=== PATIENT | female | born 1960 | race Caucasian/White ===

== ENCOUNTER → 2017-09-21 | Outpatient (CLI) | payer BC ==
[~2017-09-21] MED LIST: CRESTOR5 MG PO; DALMANE; DIOVAN320 MG PO; FLEXERIL 1010 MG/TAB PO; HALCION0.25 MG PO; LOPRESSOR100 MG PO; MOBIC15 MG PO; NORCO 325 MG-101 TAB PO; NORCO 325 MG-51 TAB PO; PREMPRO 0.625/21 TAB PO; VALTREX1 GM PO; XALATAN EYE DROPS OU; ZOCOR 20MG20 MG PO
== END ==
LOC: MC.RAD 10:57
DX: Z12.31 Encounter for screening mammogram for malignant neoplasm of breast (principal)

== ENCOUNTER 2018-12-01 10:42 | Emergency (ER) | payer BC ==
[~2018-12-01] VITALS: Ht 157.5 cm; Wt 64.5 kg
[~2018-12-01 10:42] MED LIST changes: +ASPIRIN 81M81 MG/TA2 PO; +LEXAPRO20 MG PO; +PERCOCET 325 MG1 TAB PO; +PRAVACHOL 20MG20 MG PO; +RT SPIRIVA18 MCG IH; +TRUSOPT OCUMETE10 ML OU
[2018-12-01 10:52] VITALS: TEMP 98
[2018-12-01 11:09] LABS: COLLECTION METHOD CLEAN CATCH
[2018-12-01 11:43] LABS: MUCOUS Present /lpf; PH 7 (5-8); URINE APPEARANCE Clear; URINE BACTERIA None Seen /hpf; URINE BILIRUBIN Negative (NEGATIVE); URINE BLOOD 2+ (NEGATIVE); URINE COLOR Yellow; URINE GLUCOSE 1+ (NEGATIVE); URINE KETONE Trace (NEGATIVE); URINE LEUKOCYTE ESTERASE Negative (NEGATIVE); URINE NITRATE Negative (NEGATIVE); URINE PROTEIN(semi-quant) 1+ (NEGATIVE); URINE RBC 20-50 /hpf; URINE UROBILINOGEN Negative (NEGATIVE)
[2018-12-01 13:30] LABS: BASO # 0.1 (0.0-0.2); BASO % 0.6 % (0.0-2.0); EOS % 0.1 % (0-4.0); GRAN # 11.9 (1.4-6.5); GRAN % 86.6 % (42.2-75.2); HEMOGLOBIN 14.7 g/dl (12.5-16.0); LYMPH # 1.1 (1.2-3.4); LYMPH % 8.3 % (20.0-51.0); MEAN CELL VOLUME 101 fl (80.0-100.0); MEAN CORPUSCULAR HEMOGLOBIN 34 pg (27.0-31.0); MEAN CORPUSCULAR HGB CONC 33 g/dl (33.0-37.0); MONO # 0.5 (0.1-0.6); PLATELET COUNT 243 K/mm3 (130-400); RED BLOOD COUNT 4.37 M/mm3 (4.10-5.30); REDCELL DISTRIBUTION WIDTH-CV 12.6 % (11.5-14.5)
[2018-12-01] MEDS ORDERED: TRELEGY ELLIPT1 EACH INH (13:30)
[2018-12-01 13:32] LABS: COLLECTION METHOD CLEAN CATCH
[2018-12-01 13:40] LABS: ALBUMIN 4.4 gm/dL (3.5-5.0); BILIRUBIN,TOTAL 0.8 mg/dL (0.0-1.0); C-REACTIVE PROTEIN 1.7 mg/dL (0.0-0.9); CALCIUM 9.8 mg/dL (8.4-10.2); CREATININE, serum 0.91 mg/dL (0.52-1.25); POTASSIUM 4.7 mmol/L (3.4-5.0); TOTAL PROTEIN 8.2 gm/dL (6.4-8.2)
[2018-12-01 13:40] LABS: MUCOUS Present /lpf; PH 7 (5-8); URINE APPEARANCE Clear; URINE BACTERIA Rare /hpf; URINE BILIRUBIN Negative (NEGATIVE); URINE BLOOD 2+ (NEGATIVE); URINE COLOR Yellow; URINE GLUCOSE Negative (NEGATIVE); URINE KETONE Negative (NEGATIVE); URINE LEUKOCYTE ESTERASE Negative (NEGATIVE); URINE NITRATE Negative (NEGATIVE); URINE PROTEIN(semi-quant) 1+ (NEGATIVE); URINE RBC 20-50 /hpf; URINE UROBILINOGEN Negative (NEGATIVE)
[2018-12-01 15:23] VITALS: BP 173/97
[2018-12-01] MEDS ORDERED: ZOFRAN ODT4 MG PO (15:33)
[2018-12-01] MEDS ORDERED: PERCOCET 325 MG1 TA2 PO (15:33)
[2018-12-01] MEDS ORDERED: CEFTIN500 MG PO (15:33)
[2018-12-01 16:41] VITALS: PULSE 66
== END 2018-12-01 16:42 | disposition home or self-care (01) ==
LOC: COL.ER 10:42
PROVIDERS: Emergency Medicine
DX: N20.1 Calculus of ureter (principal); N23 Unspecified renal colic; F17.210 Nicotine dependence, cigarettes, uncomplicated; J44.9 Chronic obstructive pulmonary disease, unspecified; Z87.442 Personal history of urinary calculi; Z79.82 Long term (current) use of aspirin; Z79.51 Long term (current) use of inhaled steroids
CPT/HCPCS: A4216; J0696; J1885; J2405; J3010; J7030; Q9967

== ENCOUNTER → 2019-06-10 | Outpatient (CLI) | payer BC ==
[~2019-06-10] MED LIST changes: +CEFTIN500 MG PO; +PERCOCET 325 MG1 TA2 PO; +TRELEGY ELLIPT1 EACH INH; +ZOFRAN ODT4 MG PO
== END ==
LOC: MC.RAD 05-09 13:45
DX: Z12.31 Encounter for screening mammogram for malignant neoplasm of breast (principal)

== ENCOUNTER → 2021-12-25 | Outpatient (CLI) | payer BC | LOC: COL.RAD 13:24 | DX: N20.0 Calculus of kidney (principal) | CPT/HCPCS: Q9967 ==

== ENCOUNTER 2023-12-06 15:10 | Emergency (ER) | payer BC ==
[~2023-12-06] VITALS: Ht 157.5 cm; Wt 52.3 kg
[2023-12-06 15:18] VITALS: TEMP 98.1
[2023-12-06] MEDS ORDERED: Morphine 10 MG/ML VIAL IM ONE (17:15)
[2023-12-06 17:31] VITALS: BP 175/96; PULSE 75
== END 2023-12-06 17:38 | disposition home or self-care (01) ==
LOC: COL.ER 15:10
DX: S52.501A Unspecified fracture of the lower end of right radius, initial encounter for closed fracture (principal); S52.601A Unspecified fracture of lower end of right ulna, initial encounter for closed fracture; G89.29 Other chronic pain; F17.210 Nicotine dependence, cigarettes, uncomplicated; W18.30XA Fall on same level, unspecified, initial encounter
CPT/HCPCS: J2270